=== PATIENT | male | born 1950 | race Caucasian/White ===

== ENCOUNTER 2021-11-27 18:28 | Emergency (ER) | payer OTHER ==
[~2021-11-27] VITALS: Ht 162.6 cm; Wt 73.0 kg
--- NOTE | ~2021-11-27 | EMS ---
[address] [address] EMS Patient Care Report Name: GAVI YOUSIF Room #: DEP MILAN Engle#: [id number] Admission: 11/27/21 Attend Phys: Discharge: 11/28/21 Date of : 46 Report #: [id number] THIS REPORT FOR: //name// Report Transmitted: 12/01/2021 13:36 EMS Care Summary [place], [place]/[facility] Incident [id number] @ 11/27/2021 17:53 Incident Location [address] [place] [address] Patient GAVI YOUSIF Male, 71 Years 1950 Patient Address [address] [place] [address] Patient History None Reported, Patient Allergies No known allergies, Patient Medications None Reported, Chief Complaint cough w/ fever Disposition Transported No Lights/[place] Dispatch Reason Breathing Problem Transported To [facility] Narrative M29 dispatched to residence for sick. O/A M29 found male standing in front of residence with a coat on. Pt reported he had a fever with productive cough since last night. Pt reported he had a headache and muscle aches since last ight also. Pt transported to [facility]. M29 in service. [address] [address] EMS Patient Care Report Name: GAVI YOUSIF Room #: DEP ER Rosalie#: [id number] Admission: 11/27/21 Attend Phys: Discharge: 11/28/21 Date of : 46 Report #: [id number] Initial Vitals @18:08P: 99,R: 18,BP: 124/79,Pain: 2/10,GCS: 15,SpO2: 96,Revised Trauma: 12, @18:12P: 96,R: 18,BP: 120/79,Pain: 2/10,GCS: 15,CO: 4,SpO2: 95,Revised Trauma: 12, Assessments @18:13MENTAL:No Abnormalities,SKIN:No Abnormalities,HEENT:Head/Face: No Abnormalities,Eyes: No Abnormalities,Neck/Airway: No Abnormalities,LUNG SOUNDS:General: No Abnormalities,Left Upper: No Abnormalities,Right Upper: No Abnormalities,Left Lower: No Abnormalities,Right Lower: No Abnormalities,ABDOMEN:General: No Abnormalities,Left Upper: No Abnormalities,Right Upper: No Abnormalities,Left Lower: No Abnormalities,Right Lower: No Abnormalities,PELVIS//GI:No Abnormalities,EXTREMITIES:Left Arm: No Abnormalities,Right Arm: No Abnormalities,Left Leg: No Abnormalities,Right Leg: No Abnormalities,PULSE:NEURO:No Abnormalities,@18:13MENTAL:No Abnormalities,SKIN:No Abnormalities,HEENT:Head/Face: No Abnormalities,Eyes: No Abnormalities,Neck/Airway: No Abnormalities,LUNG SOUNDS:General: No Abnormalities,Left Upper: No Abnormalities,Right Upper: No Abnormalities,Left Lower: No Abnormalities,Right Lower: No Abnormalities,ABDOMEN:General: No Abnormalities,Left Upper: No Abnormalities,Right Upper: No Abnormalities,Left Lower: No Abnormalities,Right Lower: No Abnormalities,PELVIS//GI:No Abnormalities,EXTREMITIES:Left Arm: No Abnormalities,Right Arm: No Abnormalities,Left Leg: No Abnormalities,Right Leg: No Abnormalities,PULSE:NEURO:No Abnormalities, Impression Cough Timeline 17:51,Call Received 17:51,Dispatch Notified 17:53,Dispatched 17:54,En Route 18:06,On Scene 18:07,At Patient 18:08,BP: 124/79 M,PULSE: 99,RR: 18 R,SPO2: 96 Ox,ETCO2: ,BG: ,PAIN: 2,GCS: 15, 18:09,Depart Scene 18:12,BP: 120/79 M,PULSE: 96,RR: 18 R,SPO2: 95 Ox,ETCO2: ,BG: ,PAIN: 2,GCS: 15, 18:24,At Destination 18:39,Call Closed Disclaimer v1.1 Copyright 2021 [employer] This EMS Care Summary contains data elements from the applicable legal record [address] [address] EMS Patient Care Report Name: GAVI YOUSIF METHUEN Room #: DEP Kadie#: [id number] Admission: 11/27/21 Attend Phys: Discharge: 11/28/21 Date of : 46 Report #: [id number] (which may be displayed differently). It is designed to provide pertinent information for the following purposes: continuity of care, clinical quality, and state data reporting. The complete legal record is available to ED staff and administrators of the receiving hospital in [facility]'s Patient Tracker. All data is provided "as is."
[~2021-11-27 18:28] MED LIST: ASPIR 8181 M1 PO; PRISTIQ50 M1; [UNRECOGNIZED DRUG - REMARK]
[2021-11-28 00:38] VITALS: BP 128/79
== END 2021-11-28 00:35 | disposition home or self-care (01) ==
LOC: ER 18:28
PROVIDERS: Student in an Organized Health Care Education/Training Program
DX: U07.1 COVID-19 (principal); J06.9 Acute upper respiratory infection, unspecified; E78.00 Pure hypercholesterolemia, unspecified; Z79.899 Other long term (current) drug therapy

== ENCOUNTER → 2021-11-28 | Emergency (ER) | payer OTHER ==
[~2021-11-28] VITALS: Ht 152.4 cm; Wt 63.5 kg
[2021-11-28 08:08] VITALS: BP 142/76
== END ==
LOC: ER 00:23
DX: R05.9 Cough, unspecified (principal); E78.00 Pure hypercholesterolemia, unspecified; Z53.21 Procedure and treatment not carried out due to patient leaving prior to being seen by health care provider